=== PATIENT | male | born 1985 | race African-American/Black ===

== ENCOUNTER 2018-01-01 13:18 | Emergency (ER) | payer BC, MEDICAID, OTHER ==
--- NOTE | 2018-01-01 13:40 | ER Document Report ---
ED Medical Screen (RME) - General Chief Complaint: Flank Pain Stated Complaint: FLANK PAIN Time Seen by Provider: 01/01/18 13:27 Mode of Arrival: Ambulatory Information source: Patient Notes: This is a 32-year-old male who presents to the gradual swelling of the left testicle. He does state that he is also had some left flank pain for the past 3 weeks. He denies any fever, chills. He denies any blood in the urine or dysuria. He denies any testicular pain in general. He states he was in [place] 3 weeks ago and he thinks the testicle has been getting larger since then. I have greeted and performed a rapid initial assessment of this patient. A comprehensive ED assessment and evaluation of the patient, analysis of test results and completion of medical decision making process we will be contacted by additional ED providers. TRAVEL OUTSIDE OF THE [place] IN LAST 30 DAYS: No - Related Data Allergies/Adverse Reactions: No Known Allergies Allergy (Verified 01/01/18 13:27) Past Medical History - Social History Frequency of alcohol use: Occasional Drug Abuse: None Renal/ Medical History: Denies: Hx Peritoneal Dialysis Physical Exam - Vital signs Vitals: Temp Pulse Resp BP Pulse Ox 99.3 F 103 H 20 156/112 H 98 01/01/18 13:21 01/01/18 13:21 01/01/18 13:21 01/01/18 13:21 01/01/18 13:21 Course - Vital Signs Vital signs: Temp Pulse Resp BP Pulse Ox 99.3 F 103 H 20 156/112 H 98 01/01/18 13:21 01/01/18 13:21 01/01/18 13:21 01/01/18 13:21 01/01/18 13:21
[2018-01-01 14:07] LABS: ABSOLUTE EOSINOPHILS # (AUTO) 0.1 10^3/uL (0.0-0.6); ABSOLUTE LYMPHOCYTES (AUTO) 2.6 10^3/uL (0.5-4.7); ABSOLUTE MONOCYTES (AUTO) 0.6 10^3/uL (0.1-1.4); ABSOLUTE NEUT (AUTO) 4.7 10^3/uL (1.7-8.2); BASOPHILS % (AUTO) 0.6 % (0-2); EOSINOPHILS % (AUTO) 1.8 % (0-6); HEMATOCRIT 43.6 % (37.9-51.0); HEMOGLOBIN 14.7 g/dL (13.5-17.0); LYMPHOCYTES % (AUTO) 32.3 % (13-45); MEAN CORPUSCULAR HEMOGLOBIN 29.7 pg (27.0-33.4); MEAN CORPUSCULAR HGB CONC 33.7 g/dL (32.0-36.0); MEAN CORPUSCULAR VOLUME 88 fl (80-97); MONOCYTES % (AUTO) 7.4 % (3-13); PLATELET COUNT 189 10^3/uL (150-450); RED BLOOD COUNT 4.94 10^6/uL (4.35-5.55); RED CELL DISTRIBUTION WIDTH 13.7 % (11.5-14.0); SEGMENTED NEUTROPHILS % (AUTO) 57.9 % (42-78); TOTAL CELLS COUNTED % (AUTO) 100 %; WHITE BLOOD COUNT 8.2 10^3/uL (4.0-10.5)
[2018-01-01 14:27] LABS: ANION GAP 9 (5-19); BLOOD UREA NITROGEN 14 mg/dL (7-20); CALCIUM 9.2 mg/dL (8.4-10.2); CARBON DIOXIDE 30 mmol/L (22-30); CHLORIDE 106 mmol/L (98-107); GLUCOSE 104 mg/dL (75-110); POTASSIUM 4.2 mmol/L (3.6-5.0); SODIUM 144.9 mmol/L (137-145)
--- NOTE | 2018-01-01 14:37 | RADIOLOGY REPORT (SQ) ---
EXAM DESCRIPTION: U/S SCROTUM W/DOPPLER COMPLETED DATE/TIME: 01/01/2018 2:24 pm REASON FOR STUDY: left testicle swelling COMPARISON: None. TECHNIQUE: Static and realtime dias scale imaging of the scrotum and testes. Selected color Doppler and spectral images recorded to document blood flow. LIMITATIONS: None. FINDINGS: RIGHT: TESTICLE: Normal size. Normal echotexture. Normal blood flow. No mass. EPIDIDYMIS: Normal. HYDROCELE OR VARICOCELE: No. HERNIA OR EXTRA-TESTICULAR MASS: No. OTHER: No other significant finding. LEFT: TESTICLE: Enlarged relative to the right testis. Slightly hyperemic. Heterogeneous diffuse abnormal echo pattern with rounded areas of relative hypoechoic parenchymal and heterogeneous areas of increa sed echogenicity. In the absence of any trauma history, concerning for neoplasm. Pronounced orchiti s is also in the differential. No calcifications are detected. EPIDIDYMIS: Normal. HYDROCELE OR VARICOCELE: No. HERNIA OR EXTRA-TESTICULAR MASS: No. OTHER: No other significant finding. IMPRESSION: 1. Abnormal left testis. With no provided history of significant trauma or pain, concer ray for neoplasm. No evidence of torsion. TECHNICAL DOCUMENTATION: JOB ID: [id number] [employer]- All Rights Reserved Reading location - IP/workstation name: [email or web address]
[2018-01-01] MEDS ORDERED: AZITHROMYCIN 250 MG TABLET PO ONE (14:54)
[2018-01-01] MEDS ORDERED: LIDOCAINE 1% INJ-PF (10 MG/ML) 30 ML SDV INJ ONE (14:54)
--- NOTE | 2018-01-01 14:54 | ER Document Report ---
ED General - General Mode of Arrival: Ambulatory TRAVEL OUTSIDE OF THE [place] IN LAST 30 DAYS: No <DAVI ESPANA - Last Filed: 01/01/18 17:36> <SRINIBRUCEMARIA LUISA - Last Filed: 01/01/18 17:50> - General Chief Complaint: Flank Pain Stated Complaint: FLANK PAIN Time Seen by Provider: 01/01/18 13:27 - HPI Notes: 32-year-old male presents the ED with complaints of gradual left testicular swelling as well as left inguinal pain, with increasing pain for the last 3 weeks. Has not seen a primary care provider for this concern. Patient did just return from [place] on a vacation approximately a week ago. States he did have unprotected sexual intercourse, denies any penile drainage penile lesions. Denies any fevers or chills, denies any bladder or bowel dysfunction, denies any erectile dysfunction or ejaculation issues. Patient denies history of any STDs. Denies family history of testicular cancer. Denies chest pain, palpitations, shortness of breath, dyspnea, nausea, vomiting, diarrhea, abdominal pain, hematuria,blurred vision, double vision, loss of vision, speech changes, LH, dizziness, syncope, headaches, wheezing, ST, URI, neck pain, weakness, bowel or bladder dysfunction, saddle anesthesia, numbness or tingling in bilateral upper or lower extremities equally, muscle paralysis, weakness in bilateral upper or lower extremities equally or rash. Denies IV drug use. ( DAVI ESPANA) - Related Data Allergies/Adverse Reactions: No Known Allergies Allergy (Verified 01/01/18 13:27) Past Medical History - General Information source: Patient - Social History Smoking Status: Never Smoker Frequency of alcohol use: Occasional Drug Abuse: None Family History: Reviewed & Not Pertinent Patient has suicidal ideation: No Patient has homicidal ideation: No Renal/ Medical History: Denies: Hx Peritoneal Dialysis Past Surgical History: Reports: Hx Orthopedic Surgery - left emma <DAVI ESPANA - Last Filed: 01/01/18 17:36> Review of Systems - Review of Systems Constitutional: No symptoms reported EENT: No symptoms reported Cardiovascular: No symptoms reported Respiratory: No symptoms reported Gastrointestinal: No symptoms reported Genitourinary: No symptoms reported Male Genitourinary: See HPI Musculoskeletal: No symptoms reported Skin: No symptoms reported Hematologic/Lymphatic: No symptoms reported Neurological/Psychological: No symptoms reported <DAVI ESPANA - Last Filed: 01/01/18 17:36> Physical Exam <DAVI ESPANA - Last Filed: 01/01/18 17:36> <SRINIBRUCEMARIA LUISA - Last Filed: 01/01/18 17:50> - Vital signs Vitals: Temp Pulse Resp BP Pulse Ox 99.3 F 103 H 20 156/112 H 98 01/01/18 13:21 01/01/18 13:21 01/01/18 13:21 01/01/18 13:21 01/01/18 13:21 - Notes Notes: PHYSICAL EXAMINATION: GENERAL: Well-appearing, well-nourished and in no acute distress. HEAD: Atraumatic, normocephalic. EYES: Pupils equal round and reactive to light, extraocular movements intact, sclera anicteric, conjunctiva are normal. ENT: Nares patent, oropharynx clear without exudates. Moist mucous membranes. NECK: Normal range of motion, supple without lymphadenopathy LUNGS: Breath sounds clear to auscultation bilaterally and equal. No wheezes rales or rhonchi. HEART: Regular rate and rhythm without murmurs ABDOMEN: Soft, nontender, nondistended abdomen. No guarding, no rebound. No masses appreciated. : Noted palpable mass to posterior aspect of the left testes, no surrounding erythema, induration, warmth to touch, no inguinal or femoral hernias bilaterally, both testes descended. normal cremasteric reflex. Musculoskeletal: Normal range of motion, no pitting or edema. No cyanosis. NEUROLOGICAL: Cranial nerves grossly intact. Normal speech, normal gait. Normal sensory, motor exams PSYCH: Normal mood, normal affect. SKIN: Warm, Dry, normal turgor, no rashes or lesions noted. (DAVI ESPANA) Course - Laboratory Result Diagrams: 01/01/18 14:00 01/01/18 14:00 <DAVI ESPANA - Last Filed: 01/01/18 17:36> - Laboratory Result Diagrams: 01/01/18 14:00 01/01/18 14:00 <MARIA LUISA ROMO - Last Filed: 01/01/18 17:50> - Re-evaluation Re-evalutation: 01/01/18 15:08 Healthy 32-year-old male who is afebrile, who is likely anxious when his initial vital signs were taken, repeat vital signs were normal, who appears to be in no distress. Ultrasound shows a left testicular mass that is heterogeneous diffusely abnormal echo pattern with rounded areas of relative hypo-echoic parenchymal and heterogeneous areas of increased echogenicity read by radiologist Dr. Delbert Kirk MD. no evidence of torsion, differential also includes orchitis. The BC negative for any leukocytosis or anemia, CMP negative for anemia hepatic dysfunction Consulted with Dr. Kingston at 1425, stated needed urology consults advised to check a LDH. Spoke with Dr. Rickey Otoole, neurologist on-call at 1427, will see patient in clinic tomorrow, advised to order a liver function panel, AFP, beta quant. 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 Work note given. I have reevaluated this patient multiple times and no significant life threatening changes, no signs of toxicity, sepsis or peritonitis are noted. The patient and I have discussed the diagnosis and risks, and we agree with discharging home and close follow-up. We also discussed returning to the Emergency Department immediately if new or worsening symptoms occur with the understanding that symptoms and presentations can change. At this time will discharge with return precautions and follow-up recommendations. Verbal discharge instructions given a the bedside and opportunity for questions given. We have discussed the symptoms which are most concerning (e.g., saddle anesthesia, urinary or bowel incontinence or retention, changing or worsening pain) that necessitate immediate return. Medication warnings reviewed. All questions and concerns answered by this provider. Patient is in agreement with this plan and has verbalized understanding of return precautions and the need for primary care follow-up in the next 24-72 hours and the urologist as already expressed. Patient verbalized understanding of plan of care and agree with plan of care. (DAVI ESPANA) 01/01/18 17:49 Note: I called the patient at home and spoke to him and reiterated that he absolutely needs to call the urologist tomorrow given our concerns for testicular cancer. He understands and he will be following up with the urologist tomorrow as planned. (MARIA LUISA ROMO) - Vital Signs Vital signs: Temp Pulse Resp BP Pulse Ox 98.9 F 89 20 143/94 H 98 01/01/18 15:24 01/01/18 15:24 01/01/18 15:24 01/01/18 15:24 01/01/18 15:24 - Laboratory Laboratory results interpreted by me: 01/01/18 01/01/18 01/01/18 14:00 14:00 14:45 Lactate Dehydrogenase 2110 H Beta HCG, Quant 6.40 H Urine Ketones TRACE H Urine Urobilinogen 4.0 H Discharge <DAVI ESPANA - Last Filed: 01/01/18 17:36> <MARIA LUISA ROMO - Last Filed: 01/01/18 17:50> - Discharge Clinical Impression: Testicular mass, Possible exposure to STD Condition: Stable Disposition: HOME, SELF-CARE Instructions: Growth or Mass, Pending Workup (OM) Additional Instructions: Follwo up with Dr. Otoole, urologist will be the office tomorrow morning. Take antibiotic as directed with food. Eat yogurt daily to prevent loose stool. Avoid having sexual intercourse until results of GC, should be back later today. Return immediately for any new or worsening symptoms. Follow up with primary care provider, call tomorrow to make followup appointment. Prescriptions: Doxycycline Hyclate 100 mg PO BID #20 capsule Forms: Return to Work Referrals: RICKEY OTOOLE MD [BACK OFFICE MEDICAL ASSISTANT] - Follow up tomorrow (call in morning for an appointment ) VIVIANA RAY MD [ACTIVE STAFF] - Follow up as needed (in 3-5 days)
[2018-01-01] MEDS ORDERED: CEFTRIAXONE INJ 250 MG VIAL IM ONE (14:55)
[2018-01-01 15:10] LABS: ALANINE AMINOTRANSFERASE 27 U/L (21-72); ALBUMIN 3.9 g/dL (3.5-5.0); ALKALINE PHOSPHATASE 104 U/L (38-126); ASPARTATE AMINO TRANSFERASE 28 U/L (17-59); BILIRUBIN,DIRECT 0.2 mg/dL (0.0-0.4); BILIRUBIN,TOTAL 0.2 mg/dL (0.2-1.3); TOTAL PROTEIN 7.5 g/dL (6.3-8.2)
[2018-01-01 15:16] LABS: APPEARANCE,URINE CLEAR; BILIRUBIN,URINE NEGATIVE (NEGATIVE); COLOR,URINE YELLOW; GLUCOSE, URINE NEGATIVE (NEGATIVE); KETONES,URINE TRACE mg/dL (NEGATIVE); LEUKOCYTE ESTERASE,URINE NEGATIVE (NEGATIVE); NITRITE,URINE NEGATIVE (NEGATIVE); PROTEIN,URINE NEGATIVE (NEGATIVE); URINE SPECIFIC GRAVITY 1.035
[2018-01-01 15:27] VITALS: BP 143/94
[2018-01-01 16:32] LABS: CHLAM PCR NOT DETECTED (NOT DETECT); GON PCR NOT DETECTED (NOT DETECT)
== END 2018-01-01 15:27 | disposition home or self-care (01) ==
LOC: ER 13:18
DX: D49.59 Neoplasm of unspecified behavior of other genitourinary organ (principal); Z20.2 Contact with and (suspected) exposure to infections with a predominantly sexual mode of transmission
CPT/HCPCS: 36415; 76870; 80048; 80076; 81001; 82105; 83615; 84702; 85025; 87491; 87591; 93976; 99284

== ENCOUNTER 2018-01-04 13:07 | Day surgery (SDC) | payer BC ==
[~2018-01-04 13:07] MED LIST: CEFAZOLIN 1 GM/D5W RTU 1 GM/50 ML RTUPB IV PRN
[2018-01-04] MEDS ORDERED: MIDAZOLAM 2 MG/2 ML INJ ONE (14:42)
[2018-01-04] MEDS ORDERED: FENTANYL CITRATE INJ/PF 250 MCG/5 ML AMPULE ONE ×2 (14:42→15:53)
[2018-01-04] MEDS ORDERED: LIDOCAINE 2% INJ-PF (20 MG/ML) 10 ML AMPUL ONE (14:42)
[2018-01-04] MEDS ORDERED: PROPOFOL INJ 200 MG/20 ML VIAL IV ONE ×2 (14:43→15:54)
[2018-01-04] MEDS ORDERED: ACETAMINOPHEN 1,000 MG/100 ML RTUPB IV ONE (14:43)
[2018-01-04] MEDS ORDERED: MORPHINE SULFATE 10 MG/ML INJ ONE (15:40)
[2018-01-04] MEDS ORDERED: PROMETHAZINE HCL INJ 25 MG/1 ML VIAL IV PRN ×2 (16:06)
[2018-01-04] MEDS ORDERED: DIPHENHYDRAMINE HCL 50 MG/ML VIAL IV PRN (16:06)
[2018-01-04] MEDS ORDERED: MEPERIDINE HCL/PF INJ 25 MG/1 ML DISP.SYRIN IV PRN (16:06)
[2018-01-04] MEDS ORDERED: FENTANYL CITRATE INJ/PF 100 MCG/2 ML AMPUL IV PRN ×3 (16:06)
[2018-01-04] MEDS ORDERED: ONDANSETRON HCL INJ/PF 4 MG/2 ML SDV IV PRN (16:06)
[2018-01-04] MEDS ORDERED: MORPHINE SULFATE 10 MG/ML INJ IV PRN (16:06)
[2018-01-04] MEDS ORDERED: OXYCODONE-ACETAMINOPHEN 5-325 MG TABLET PO PRN ×2 (16:06)
[2018-01-04] MEDS ORDERED: BUPIVACAINE HCL 0.25 % INJ/PF (2.5 MG/1 ML) 30 ML VIAL ONE (16:20)
[2018-01-04] MEDS ORDERED: KETOROLAC TROMETHAMINE INJ/PF 30 MG/1 ML SDV ONE (16:54)
[2018-01-04] MEDS ORDERED: HYDROCODONE/ACETAMINOPHEN 5-325 MG TABLET PO PRN (18:00)
[2018-01-04 19:07] VITALS: BP 135/90
--- NOTE | 2018-01-04 20:04 | OPERATIVE REPORT E ---
Operative Report NAME: HIWOT FERNANDO : 1985 AGE: 32Y DATE OF SURGERY: 01/04/2018 ROOM: PREOPERATIVE DIAGNOSIS: LEFT TESTICULAR MASS. POSTOPERATIVE DIAGNOSIS: LEFT TESTICULAR MASS. OPERATION: Left radical orchiectomy. SURGEON: DANIEL PITTMAN M.D. CURRENCY EXAMINER: None. TISSUE REMOVED OR ALTERED: Left testicle. COMPLICATIONS: None. ESTIMATED BLOOD LOSS: Minimal. INDICATIONS FOR PROCEDURE: The patient is a 32-year-old -[place] male with a solid left testicular mass. His tumor markers were elevated. His alpha-fetoprotein was normal at 4.1; his beta hCG was elevated at 6.4 (normal less than 2.39); and his LDH was 2110 (normal 313-618). The various options for treatment as well as risks and benefits were discussed. Potential complications that were discussed included but were not limited to bleeding, infection, need for additional surgery, injury to surrounding structures, including the ilioinguinal or genitofemoral nerve which can cause burning or numbness in the scrotum or anterior thigh. The patient appeared to understand the various options for treatment as well as the risks and benefits and wished to proceed with the proposed surgery. PROCEDURE: After the patient was identified in the preop holding area, he was brought to the operating room. Timeout was performed where the correct patient, side of procedure, and procedure were confirmed. He was then given general anesthesia. He was next prepped and draped in the routine sterile manner. An incision was made obliquely in the left inguinal canal and dissection was carried sharply through the various layers down to the level of fascia. Layers were coagulated with Bovie and secured with 3-0 chromic ties. The external oblique fascia was opened in the direction of its fibers. Care was taken to avoid the underlying ilioinguinal nerve. The spermatic cord was surrounded and the cord was divided near the level of the internal ring. Two Addie hemostats were placed on the distal end and 1 on the proximal end. A transfixion suture of #1 Prolene was used secure the cord and the portion of the cord that contained the vas. These were double ligated and tied. Sutures were left long in case the patient requires a retroperitoneal method of dissection. The testicle was freed from its gubernacular attachments which were then tied with interrupted 3-0 chromic ties. The testicle was then delivered and sent for analysis. The area was checked for hemostasis, which was present. The external oblique fascia was closed with a running suture of 2-0 PDS. Care was taken to avoid the ilioinguinal nerve. The subcuticular space was closed with several interrupted sutures of 3-0 chromic. A 4-0 Vicryl was used to approximate the skin edges. Dermabond was used to seal the incision. All needle, sponge, and instrument counts were correct. The patient was returned to recovery room in satisfactory condition. DICTATING PHYSICIAN: DANIEL PITTMAN M.D. [id number] PHY#: [id number] ID: [id number] JOB#: [id number] ACCT: [id number] cc:DANIEL PITTMAN M.D. >
== END 2018-01-04 18:50 | disposition home or self-care (01) ==
LOC: OROUT 13:07
PROVIDERS: ATTEND Urology
DX: C62.12 Malignant neoplasm of descended left testis (principal)
CPT/HCPCS: 88342 ×2; 88341 ×2; 88309 ×2; 54520; J2250; J0690; J3010; J1885; J2270; J2704; J3490; J0131; 926

== ENCOUNTER 2018-01-09 04:23 | Emergency (ER) | payer BC ==
--- NOTE | 2018-01-09 05:20 | ER Document Report ---
ED Medical Screen (RME) - General Chief Complaint: Back Pain Stated Complaint: BACK PAIN Time Seen by Provider: 01/09/18 04:51 Mode of Arrival: Ambulatory Information source: Patient TRAVEL OUTSIDE OF THE [place] IN LAST 30 DAYS: No - Related Data Allergies/Adverse Reactions: No Known Allergies Allergy (Verified 01/09/18 04:39) Past Medical History - Past Medical History Cardiac Medical History: Denies: Hx Coronary Artery Disease, Hx Heart Attack, Hx Hypertension Pulmonary Medical History: Denies: Hx Asthma, Hx Bronchitis, Hx COPD, Hx Pneumonia Neurological Medical History: Denies: Hx Cerebrovascular Accident, Hx Seizures Renal/ Medical History: Denies: Hx Peritoneal Dialysis Musculoskeltal Medical History: Denies Hx Arthritis Past Surgical History: Reports: Hx Orthopedic Surgery - left emma - Immunizations Hx Diphtheria, Pertussis, Tetanus Vaccination: Yes History of Influenza Vaccine for 04/2017 - 09/2017 Season: No Physical Exam - Vital signs Vitals: Temp Pulse Resp BP Pulse Ox 98.6 F 86 12 145/91 H 98 01/09/18 04:25 01/09/18 04:25 01/09/18 04:25 01/09/18 04:25 01/09/18 04:25 Course - Vital Signs Vital signs: Temp Pulse Resp BP Pulse Ox 98.6 F 86 12 145/91 H 98 01/09/18 04:25 01/09/18 04:25 01/09/18 04:25 01/09/18 04:25 01/09/18 04:25
[2018-01-09] MEDS ORDERED: CYCLOBENZAPRINE HCL 10 MG TABLET PO ONE (05:49)
--- NOTE | 2018-01-09 05:49 | ER Document Report ---
ED Medical Screen (RME) - General Chief Complaint: Back Pain Stated Complaint: BACK PAIN Time Seen by Provider: 01/09/18 04:51 Mode of Arrival: Ambulatory Information source: Patient Notes: Patient is a 32-year-old male with complaints of left sided low back pain. Patient reports the pain has been ongoing for 1 week. Patient reports he has been seen here for this recently at which time he was diagnosed with a mass in his left testicle. Patient reports that he underwent a radical orchiectomy on Tuesday by Dr. Savage from urology. Patient reports that his back pain has never changed has not worsened but has not gotten better. Patient reports he is taking Percocet for his postoperative pain however he states that the Percocet does not relieve the back pain. Patient denies any trauma to this area. Patient denies any urinary symptoms or fever. I have greeted and performed a rapid initial assessment of this patient. A comprehensive ED assessment and evaluation of the patient, analysis of test results and completion of the medical decision making process will be conducted by additional ED providers. TRAVEL OUTSIDE OF THE [place] IN LAST 30 DAYS: No - Related Data Allergies/Adverse Reactions: No Known Allergies Allergy (Verified 01/09/18 04:39) Past Medical History - Past Medical History Cardiac Medical History: Denies: Hx Coronary Artery Disease, Hx Heart Attack, Hx Hypertension Pulmonary Medical History: Denies: Hx Asthma, Hx Bronchitis, Hx COPD, Hx Pneumonia Neurological Medical History: Denies: Hx Cerebrovascular Accident, Hx Seizures Renal/ Medical History: Denies: Hx Peritoneal Dialysis Musculoskeltal Medical History: Denies Hx Arthritis Past Surgical History: Reports: Hx Orthopedic Surgery - left emma - Immunizations Hx Diphtheria, Pertussis, Tetanus Vaccination: Yes History of Influenza Vaccine for 04/2017 - 09/2017 Season: No Physical Exam - Vital signs Vitals: Temp Pulse Resp BP Pulse Ox 98.6 F 86 12 145/91 H 98 01/09/18 04:25 01/09/18 04:25 01/09/18 04:25 01/09/18 04:25 01/09/18 04:25 - Notes Notes: PHYSICAL EXAMINATION: GENERAL: Well-appearing, well-nourished and in no acute distress. LUNGS: Breath sounds clear to auscultation bilaterally and equal. No wheezes rales or rhonchi. HEART: Regular rate and rhythm without murmurs ABDOMEN: Soft, nontender, nondistended abdomen. No guarding, no rebound. No masses appreciated. Musculoskeletal: Normal range of motion, no pitting or edema. No cyanosis. TTP to left lumber spine. NEUROLOGICAL: Cranial nerves grossly intact. Normal speech, normal gait. Normal sensory, motor exams Course - Vital Signs Vital signs: Temp Pulse Resp BP Pulse Ox 98.6 F 86 12 145/91 H 98 01/09/18 04:25 01/09/18 04:25 01/09/18 04:25 01/09/18 04:25 01/09/18 04:25
--- NOTE | 2018-01-09 06:02 | RADIOLOGY REPORT (SQ) ---
EXAM DESCRIPTION: CT ABDOMEN PELVIS WITHOUT IV CONTRAST COMPLETED DATE/TME: 01/09/2018 04:57 EXAM DESCRIPTION: CT ABDOMEN AND PELVIS WITHOUT CONTRAST CLINICAL HISTORY: left flank/back pain left orchiectomy 01/04/2018. COMPARISON: None Available. TECHNIQUE: CT of the abdomen and pelvis without IV contrast. Evaluation of the solid organs and vasculature is suboptimal due to lack of IV contrast. DLP: 1178.37 mGy-cm FINDINGS: Lung Bases: There is a 0.3 cm pulmonary nodule in the left lung base which is incompletely visualized on this study. Bones: No destructive bone lesions identified. Abdomen: Liver: The liver has normal size and density. Gallbladder: No calcified gallstones. Spleen, Pancreas, and Adrenal Glands: The spleen, pancreas, and adrenal glands are unremarkable. Kidneys: The kidneys have normal size and contour without evidence of hydronephrosis. No obstructing ureteral calculi. Vasculature: The aorta and IVC have normal caliber and position. Stomach: The stomach and duodenum have normal course. Other: No free intraperitoneal air. Possible enlarged left para-aortic lymph nodes, a security representative lymph node is best seen on image #[id number] measuring 4.6 x 3.3 cm. Pelvis: Bladder: Urinary bladder is unremarkable. Bowel: No dilated loops of large or small bowel. Appendix: Normal appendix. Pelvis: There is skin thickening of the scrotum and inflammatory change extending along the left inguinal canal where there is a small focus of subcutaneous air as well as inflammatory change in the anterior abdominal wall subcutaneous soft tissues. Prostate is not enlarged. IMPRESSION: 1. Inflammatory change involving the scrotum and left inguinal canal may be postoperative. Cellulitis could also contribute to produce this appearance. No well-circumscribed fluid collection identified. 2. Extensive left periaortic lymphadenopathy, the largest lymph node measuring 4.6 cm in greatest dimension. This is concerning for metastatic disease given history of recent left orchiectomy. This exam was performed according to our departmental dose-optimization program, which includes automated exposure control, adjustment of the mA and/or kV according to patient size and/or use of iterative reconstruction technique.
[2018-01-09] MEDS ORDERED: OXYCODONE-ACETAMINOPHEN 5-325 MG TABLET PO ONE (06:24)
--- NOTE | 2018-01-09 06:28 | ER Document Report ---
ED General - General Mode of Arrival: Ambulatory Information source: Patient TRAVEL OUTSIDE OF THE [place] IN LAST 30 DAYS: Yes - Vacation in [place] <ROBBIE KIM - Last Filed: 01/09/18 06:36> <DELROY MARAVILLA - Last Filed: 01/09/18 09:17> - General Chief Complaint: Back Pain Stated Complaint: BACK PAIN Time Seen by Provider: 01/09/18 04:51 Notes: Patient is a 32 year old male presenting to the emergency department complaining of left flank pain. Patient presented to this ED on 01/01/2018 complaining of flank pain and testicular swelling and was found to have a testicular mass in his left testicle. On 01/04/2018 Dr. Savage performed an outpatient radial orchiectomy. Patient today states the pain has not worsened or improved since the onset of his symptoms 2 weeks ago. Patient states he was given 10 pills of Percocet but states this is not really helping his pain. Patient denies any abdominal pain, new trauma or injury, or dysuria. (ROBBIE KIM) - Related Data Allergies/Adverse Reactions: No Known Allergies Allergy (Verified 01/09/18 04:39) Past Medical History - General Information source: Patient - Social History Smoking Status: Never Smoker Frequency of alcohol use: None Family History: Reviewed & Not Pertinent Patient has suicidal ideation: No Patient has homicidal ideation: No Past Surgical History: Reports: Hx Orthopedic Surgery - left emma - Immunizations Hx Diphtheria, Pertussis, Tetanus Vaccination: Yes <ROBBIE KIM - Last Filed: 01/09/18 06:36> Review of Systems - Review of Systems Constitutional: No symptoms reported EENT: No symptoms reported Cardiovascular: No symptoms reported Respiratory: No symptoms reported Gastrointestinal: No symptoms reported Genitourinary: See HPI, Flank pain Male Genitourinary: No symptoms reported Musculoskeletal: No symptoms reported Skin: No symptoms reported Hematologic/Lymphatic: No symptoms reported Neurological/Psychological: No symptoms reported -: Yes All other systems reviewed and negative <ROBBIE KIM - Last Filed: 01/09/18 06:36> Physical Exam - General General appearance: Appears well, Alert In distress: None - HEENT Head: Normocephalic, Atraumatic Eyes: Normal Conjunctiva: Normal Extraocular movements intact: Yes Pupils: PERRL Neck: Normal - Respiratory Respiratory status: No respiratory distress - Cardiovascular Rhythm: Regular Heart sounds: Normal auscultation Murmur: No Friction rub: No Gallop: None auscultated - Abdominal Inspection: Obese Distension: No distension Bowel sounds: Normal Tenderness: Tender - LLQ tenderness to palpation, post operative. Organomegaly: No organomegaly - Genitourinary Scrotum: Swelling - Post operative. Left radial orchiectomy performed on 2017. - Back Back: Normal. No: Nontender - no reproducible tenderness - Extremities General upper extremity: Normal ROM General lower extremity: Normal ROM - Neurological Neuro grossly intact: Yes Cognition: Normal Orientation: AAOx4 You Coma Scale Eye Opening: Spontaneous You Coma Scale Verbal: Oriented You Coma Scale Motor: Obeys Commands [place] Coma Scale Total: 15 Speech: Normal - Psychological Associated symptoms: Normal affect, Normal mood - Skin Skin Temperature: Warm Skin Moisture: Dry Skin Color: Normal <ROBBIE KIM - Last Filed: 01/09/18 06:36> - Vital signs Vitals: Temp Pulse Resp BP Pulse Ox 98.6 F 86 12 145/91 H 98 01/09/18 04:25 01/09/18 04:25 01/09/18 04:25 01/09/18 04:25 01/09/18 04:25 Course - Laboratory Result Diagrams: 01/09/18 07:15 01/09/18 07:15 - Diagnostic Test Radiology reviewed: Image reviewed, Reports reviewed - CT of the chest shows bilateral subcentimeter pulmonary nodules worrisome for metastatic disease. CT of abdomen and pelvis shows retroperitoneal adenopathy consistent with metastatic disease. <DELROY MARAVILLA - Last Filed: 01/09/18 09:17> - Vital Signs Vital signs: Temp Pulse Resp BP Pulse Ox 98.3 F 80 20 130/85 H 100 01/09/18 07:26 01/09/18 07:26 01/09/18 07:26 01/09/18 07:26 01/09/18 07:26 - Laboratory Laboratory results interpreted by me: 01/09/18 01/09/18 07:15 07:15 RBC 4.23 L Hgb 12.7 L Hct 37.3 L Direct Bilirubin 0.5 H Total Protein 8.4 H Beta HCG, Quant 4.56 H Discharge <ROBBIE KIM Last Filed: 01/09/18 06:36> <DELROY MARAVILLA - Last Filed: 01/09/18 09:17> - Discharge Clinical Impression: Metastatic disease Left low back pain Qualifiers: Chronicity: unspecified Sciatica presence: without sciatica Qualified Code(s): M54.5 - Low back pain Condition: Stable Disposition: HOME, SELF-CARE Additional Instructions: Your back pain seems to be related to 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 Dr. Sheikh with [facility] has an appointment for you tomorrow morning at 10 AM. You will be discharged with prescription for pain medication. RETURN TO THE EMERGENCY ROOM IF ANY NEW OR WORSENING SYMPTOMS. Prescriptions: Oxycodone HCl/Acetaminophen [Percocet 5-325 mg Tablet] 1 - 2 tab PO ASDIR PRN # 15 tablet PRN Reason: Referrals: ASIA SHEIKH MD [ACTIVE STAFF] - 01/10/18 10:00 am Scribe Attestation: 01/09/18 07:27 I personally performed the services described in the documentation, reviewed and edited the documentation which was dictated to the scribe in my presence, and it accurately records my words and actions. (DELROY MARAVILLA) Scribe Documentation - Scribe Written by Cale:: Cale Coppola, 01/09/2018 06:30 acting as scribe for :: Mickey <ROBBIE KIM - Last Filed: 01/09/18 06:36>
[2018-01-09 07:42] LABS: ABSOLUTE EOSINOPHILS # (AUTO) 0.2 10^3/uL (0.0-0.6); ABSOLUTE LYMPHOCYTES (AUTO) 1.5 10^3/uL (0.5-4.7); ABSOLUTE MONOCYTES (AUTO) 0.6 10^3/uL (0.1-1.4); ABSOLUTE NEUT (AUTO) 4.9 10^3/uL (1.7-8.2); BASOPHILS % (AUTO) 0.2 % (0-2); EOSINOPHILS % (AUTO) 2.5 % (0-6); HEMATOCRIT 37.3 % (37.9-51.0); HEMOGLOBIN 12.7 g/dL (13.5-17.0); LYMPHOCYTES % (AUTO) 21.5 % (13-45); MEAN CORPUSCULAR HEMOGLOBIN 30.1 pg (27.0-33.4); MEAN CORPUSCULAR HGB CONC 34.1 g/dL (32.0-36.0); MEAN CORPUSCULAR VOLUME 88 fl (80-97); MONOCYTES % (AUTO) 8.2 % (3-13); PLATELET COUNT 194 10^3/uL (150-450); RED BLOOD COUNT 4.23 10^6/uL (4.35-5.55); RED CELL DISTRIBUTION WIDTH 13.6 % (11.5-14.0); SEGMENTED NEUTROPHILS % (AUTO) 67.6 % (42-78); TOTAL CELLS COUNTED % (AUTO) 100 %; WHITE BLOOD COUNT 7.2 10^3/uL (4.0-10.5)
[2018-01-09 07:51] LABS: ALANINE AMINOTRANSFERASE 31 U/L (21-72); ALBUMIN 4.2 g/dL (3.5-5.0); ALKALINE PHOSPHATASE 98 U/L (38-126); ANION GAP 13 (5-19); ASPARTATE AMINO TRANSFERASE 29 U/L (17-59); BILIRUBIN,DIRECT 0.5 mg/dL (0.0-0.4); BILIRUBIN,TOTAL 0.9 mg/dL (0.2-1.3); BLOOD UREA NITROGEN 12 mg/dL (7-20); CALCIUM 9.6 mg/dL (8.4-10.2); CARBON DIOXIDE 27 mmol/L (22-30); CHLORIDE 101 mmol/L (98-107); GLUCOSE 91 mg/dL (75-110); POTASSIUM 4.2 mmol/L (3.6-5.0); SODIUM 141.3 mmol/L (137-145); TOTAL PROTEIN 8.4 g/dL (6.3-8.2)
--- NOTE | 2018-01-09 08:35 | RADIOLOGY REPORT (SQ) ---
EXAM DESCRIPTION: CT CHEST WITH COMPLETED DATE/TIME: 01/09/2018 7:56 am REASON FOR STUDY: Testicular cancer mets COMPARISON: None. TECHNIQUE: CT scan of the chest performed using helical scanning technique with dynamic intravenous contrast injection. Images reviewed with lung, soft tissue and bone windows. Reconstructed coronal and sagittal MPR images reviewed. All images stored on PACS. All CT scanners at this facility use dose modulation, iterative reconstruction, and/or weight based d osing when appropriate to reduce radiation dose to as low as reasonably achievable (ALARA). [facility]: Dose Right [facility]: CareDose [facility]: Dose Right [facility]: Teradose 4D [facility]: [employer] CONTRAST TYPE AND DOSE: contrast/concentration: Isovue 370.00 mg/ml; Total Contrast Delivered: 100.0 ml; Total Saline Delivered: 70.0 ml RENAL FUNCTION: None required. The patient is less than 50 years old. RADIATION DOSE: CT Rad equipment meets quality standard of care and radiation dose reduction techniq ues were employed. CTDIvol: 20.6 - 21.1 mGy. DLP: 3262 mGy-cm. . LIMITATIONS: None. FINDINGS: LUNGS AND PLEURA: Bilateral pulmonary nodules with some of the largest measuring approxim ately 5-6 mm. No acute pulmonary consolidation. No pneumothorax or pleural effusion. The central a irways are clear. HILAR AND MEDIASTINAL STRUCTURES: No identified masses or abnormal nodes. HEART AND VASCULAR STRUCTURES: No aneurysm or dissection. No central pulmonary emboli. No pericardi al effusion. HARDWARE: None in the chest. UPPER ABDOMEN: Please see CT abdomen report. THYROID AND OTHER SOFT TISSUES: No masses. No adenopathy. BONES: No significant finding. OTHER: No other significant finding. IMPRESSION: 1 Bilateral subcentimeter pulmonary nodules. In view of the patient's given history, th sam findings may be on the basis of metastatic disease. TECHNICAL DOCUMENTATION: JOB ID: [id number] Quality ID # 436: Final reports with documentation of one or more dose reduction techniques (e.g., Au tomated exposure control, adjustment of the mA and/or kV according to patient size, use of iterative reconstruction technique) 2010 [employer]- All Rights Reserved Reading location - IP/workstation name: [email or web address]
--- NOTE | 2018-01-09 08:57 | RADIOLOGY REPORT (SQ) ---
EXAM DESCRIPTION: CT ABD/PELVIS WITH IV ONLY COMPLETED DATE/TIME: 01/09/2018 7:56 am REASON FOR STUDY: Testicular cancer mets . Low back pain. Left orchidectomy 01/04/2018. COMPARISON: None. TECHNIQUE: CT scan of the abdomen and pelvis performed using helical scanning technique with dynamic intravenous contrast injection. No oral contrast. Images reviewed with lung, soft tissue, and bone windows. Reconstructed coronal and sagittal MPR images reviewed. Delayed images for evaluation of the urinary system also acquired. All images stored on PACS. All CT scanners at this facility use dose modulation, iterative reconstruction, and/or weight based d osing when appropriate to reduce radiation dose to as low as reasonably achievable (ALARA). [facility]: Dose Right [facility]: CareDose [facility]: Dose Right [facility]: Teradose 4D [facility]: [employer] CONTRAST TYPE AND DOSE: Isovue 370. 100 mL. RENAL FUNCTION: Not available. RADIATION DOSE: 3261.73 LIMITATIONS: None. FINDINGS: LOWER CHEST: Pulmonary nodule right middle lobe measuring 4.8 mm LIVER: No abnormality. SPLEEN: No abnormality. PANCREAS: No abnormality. GALLBLADDER: No abnormality. ADRENAL GLANDS: No abnormality. RIGHT KIDNEY AND URETER: No abnormality. LEFT KIDNEY AND URETER: No abnormality. AORTA AND VESSELS: No aneurysm. No dissection. Renal arteries, SMA, celiac without stenosis. RETROPERITONEUM: Prominent left infrarenal para-aortic adenopathy measuring 4.5 x 4.5 cm and small in ter aortocaval nodes. No retrocrural adenopathy. Small inguinal nodes. Small obturator and interna l iliac nodes. BOWEL AND PERITONEAL CAVITY: No abnormality. APPENDIX: Normal appendix. PELVIS: No mass. No free fluid. Normal bladder. ABDOMINAL WALL: No masses. No hernias. BONES: No blastic or lytic lesions seen. OTHER: Postsurgical change with soft tissue deformity, soft tissue air, hematoma formation left scrot um and left inguinal region. IMPRESSION: 1. Postsurgical changes left inguinal and left scrotal region from previous left laura ectomy. 2. Pulmonary nodule right middle lobe. A metastasis could not be excluded. 3. Retroperit amaya adenopathy consistent with metastatic testicular carcinoma. TECHNICAL DOCUMENTATION: JOB ID: [id number] Quality ID # 436: Final reports with documentation of one or more dose reduction techniques (e.g., Au tomated exposure control, adjustment of the mA and/or kV according to patient size, use of iterative reconstruction technique) 2010 [employer]- All Rights Reserved Reading location - IP/workstation name: [email or web address]
[2018-01-09 09:39] VITALS: BP 148/91
== END 2018-01-09 09:39 | disposition home or self-care (01) ==
LOC: ER 04:23
DX: M54.5 Low back pain (principal); C79.9 Secondary malignant neoplasm of unspecified site; R91.8 Other nonspecific abnormal finding of lung field; R10.9 Unspecified abdominal pain; R10.814 Left lower quadrant abdominal tenderness; Z90.79 Acquired absence of other genital organ(s)
CPT/HCPCS: 36415; 71260; 74176; 74177; 80053; 82105; 84702; 85025; 99284

== ENCOUNTER 2018-01-31 08:43 | Outpatient (CLI) | payer BC ==
[~2018-01-31 08:43] MED LIST changes: +BLEOMYCIN SULFATE IV PRN; -CEFAZOLIN 1 GM/D5W RTU 1 GM/50 ML RTUPB IV PRN; +CISPLATIN IV PRN; +DEXAMETHASONE SOD PHOSPHATE 10 MG in NORMAL SALINE 50 ML IV PRN; +ETOPOSIDE IV PRN; +FUROSEMIDE INJ/PF 20 MG/2 ML SDV IV PRN; +NORMAL SALINE 500 ML IV PRN; +NORMAL SALINE IV PRN
[2018-01-31 10:22] VITALS: BP 156/104
== END 2018-01-31 14:30 | disposition home or self-care (01) ==
LOC: II 08:43 → 5TH 08:46 → II 14:30
PROVIDERS: ATTEND Internal Medicine
PROC: 3E03305 Introduction of Other Antineoplastic into Peripheral Vein, Percutaneous Approach (ICD-10-PCS; principal; 2018-01-31)
PROC: 3E0333Z Introduction of Anti-inflammatory into Peripheral Vein, Percutaneous Approach (ICD-10-PCS; 2018-01-31)
PROC: 3E033GC Introduction of Other Therapeutic Substance into Peripheral Vein, Percutaneous Approach (ICD-10-PCS; 2018-01-31)
DX: Z51.11 Encounter for antineoplastic chemotherapy (principal); C62.12 Malignant neoplasm of descended left testis
CPT/HCPCS: 96413; 96415; 96367; 96375; 96360; J9060; J1940; J9181; J9040; J7030; J7040; J1100; 96417

== ENCOUNTER 2018-02-01 08:39 | Outpatient (CLI) | payer BC ==
[~2018-02-01 08:39] MED LIST changes: -BLEOMYCIN SULFATE IV PRN
[2018-02-01 08:52] VITALS: BP 154/100
== END 2018-02-01 13:35 | disposition home or self-care (01) ==
LOC: II 08:39 → 5TH 08:48 → II 13:35
PROVIDERS: ATTEND Internal Medicine
PROC: 3E03305 Introduction of Other Antineoplastic into Peripheral Vein, Percutaneous Approach (ICD-10-PCS; principal; 2018-02-01)
PROC: 3E0333Z Introduction of Anti-inflammatory into Peripheral Vein, Percutaneous Approach (ICD-10-PCS; 2018-02-01)
PROC: 3E033GC Introduction of Other Therapeutic Substance into Peripheral Vein, Percutaneous Approach (ICD-10-PCS; 2018-02-01)
DX: Z51.11 Encounter for antineoplastic chemotherapy (principal); C62.12 Malignant neoplasm of descended left testis
CPT/HCPCS: 96413; 96415; 96367; J9060; J1940; J9181; J7030; J7040; J1100; 96375; 96417

== ENCOUNTER 2018-02-02 08:44 | Outpatient (CLI) | payer BC ==
[~2018-02-02 08:44] MED LIST changes: +DEXAMETHASONE SOD PHOSPHATE 10 MG in DEXTROSE 5%-WATER 50 ML IV PRN; -DEXAMETHASONE SOD PHOSPHATE 10 MG in NORMAL SALINE 50 ML IV PRN
[2018-02-02 10:23] VITALS: BP 161/95
== END 2018-02-02 13:15 | disposition home or self-care (01) ==
LOC: II 08:44 → 5TH 08:56 → II 13:15
PROVIDERS: ATTEND Internal Medicine
PROC: 3E03305 Introduction of Other Antineoplastic into Peripheral Vein, Percutaneous Approach (ICD-10-PCS; principal; 2018-02-02)
PROC: 3E0333Z Introduction of Anti-inflammatory into Peripheral Vein, Percutaneous Approach (ICD-10-PCS; 2018-02-02)
PROC: 3E033GC Introduction of Other Therapeutic Substance into Peripheral Vein, Percutaneous Approach (ICD-10-PCS; 2018-02-02)
DX: Z51.11 Encounter for antineoplastic chemotherapy (principal); C62.12 Malignant neoplasm of descended left testis
CPT/HCPCS: 96413; 96415; 96367; 96360; J9060; J1940; J9181; J7030; J7040; J1100; 96375; 96417

== ENCOUNTER 2018-02-03 08:17 | Outpatient (CLI) | payer BC ==
[~2018-02-03 08:17] MED LIST changes: -DEXAMETHASONE SOD PHOSPHATE 10 MG in DEXTROSE 5%-WATER 50 ML IV PRN; +DEXAMETHASONE SOD PHOSPHATE 10 MG in NORMAL SALINE 50 ML IV PRN
[2018-02-03 09:22] VITALS: BP 173/99
== END 2018-02-03 12:30 | disposition home or self-care (01) ==
LOC: II 08:17 → 5TH 08:17 → II 12:30
PROVIDERS: ATTEND Internal Medicine
PROC: 3E03305 Introduction of Other Antineoplastic into Peripheral Vein, Percutaneous Approach (ICD-10-PCS; principal; 2018-02-03)
PROC: 3E033GC Introduction of Other Therapeutic Substance into Peripheral Vein, Percutaneous Approach (ICD-10-PCS; 2018-02-03)
DX: Z51.11 Encounter for antineoplastic chemotherapy (principal); C62.12 Malignant neoplasm of descended left testis
CPT/HCPCS: 96413; 96415; 96367; 96360; J9060; J1940; J9181; J7030; J7040; J1100; 96375; 96417

== ENCOUNTER 2018-02-07 07:17 | Outpatient (CLI) | payer BC ==
[2018-02-07] MEDS ORDERED: NORMAL SALINE 250 ML IV PRN (08:00)
[2018-02-07] MEDS ORDERED: BLEOMYCIN SULFATE IV PRN (08:00)
[2018-02-07] MEDS ORDERED: NORMAL SALINE IV PRN (08:00)
[2018-02-07 08:54] VITALS: BP 144/93
== END 2018-02-07 10:24 | disposition home or self-care (01) ==
LOC: II 07:17 → 5TH 07:22 → II 10:24
PROVIDERS: ATTEND Internal Medicine
DX: Z51.11 Encounter for antineoplastic chemotherapy (principal); C62.12 Malignant neoplasm of descended left testis
CPT/HCPCS: 96413; J9040

== ENCOUNTER 2018-02-14 08:03 | Outpatient (CLI) | payer BC ==
[~2018-02-14 08:03] MED LIST changes: +BLEOMYCIN SULFATE IV PRN; -CISPLATIN IV PRN; -DEXAMETHASONE SOD PHOSPHATE 10 MG in NORMAL SALINE 50 ML IV PRN; -ETOPOSIDE IV PRN; -FUROSEMIDE INJ/PF 20 MG/2 ML SDV IV PRN; +NORMAL SALINE 250 ML IV PRN; -NORMAL SALINE 500 ML IV PRN
[2018-02-14 09:42] VITALS: BP 144/85
== END 2018-02-14 12:00 | disposition home or self-care (01) ==
LOC: II 08:03 → 5TH 08:04 → II 12:00
PROVIDERS: ATTEND Internal Medicine
DX: Z51.11 Encounter for antineoplastic chemotherapy (principal); C62.12 Malignant neoplasm of descended left testis
CPT/HCPCS: 96413; J9040

== ENCOUNTER → 2018-06-19 | Outpatient (CLI) | payer BC ==
--- NOTE | 2018-06-19 08:57 | RADIOLOGY REPORT (SQ) ---
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 Images reviewed with lung, soft tissue and bone windows. Reconstructed coronal a nd sagittal MPR images reviewed. All images stored on PACS. CT scan of the abdomen and pelvis performed with intravenous and without oral contrastusing helical s alisa technique with dynamic intravenous contrast injection. Images reviewed with lung, soft tissu e and bone windows. Reconstructed coronal and sagittal MPR images reviewed. Delayed images for eval uation of the urinary system also acquired and evaluated. All images stored on PACS. All CT scanners at this facility use dose modulation, iterative reconstruction, and/or weight based d osing when appropriate to reduce radiation dose to as low as reasonably achievable (ALARA). [facility]: Dose Right [facility]: CareDose [facility]: Dose Right [facility]: Teradose 4D [facility]: [employer] RADIATION DOSE: CT Rad equipment meets quality standard of care and radiation dose reduction techniq ues were employed. CTDIvol: 26.4 - 31.1 mGy. DLP: 4664 mGy-cm. . LIMITATIONS: None. FINDINGS: CHEST: LUNGS AND PLEURA: A 4 mm smooth round noncalcified nodule is present along the subpleural space right middle lobe with the minor fissure, likely a benign noncalcified granuloma. This is unchanged from 01/09/2018 CT chest. No other worrisome pulmonary nodules. No pleural effusion. No pneumothorax. No focal infiltrates. HILAR AND MEDIASTINAL STRUCTURES: No identified masses or abnormal nodes. HEART AND VASCULAR STRUCTURES: No aneurysm or dissection. No central pulmonary emboli. No pericardi al effusion. HARDWARE: None. THYROID AND OTHER SOFT TISSUES: No masses. No adenopathy. BONES: No significant finding. OTHER: No other significant finding. ABDOMEN AND PELVIS: LIVER: Normal size. No masses. No dilated ducts. SPLEEN: Normal size. No focal lesions. PANCREAS: No masses. No significant calcifications. No adjacent inflammation or peripancreatic fluid collections. Pancreatic duct not dilated. GALLBLADDER: No identified stones by CT criteria. No inflammatory changes to suggest cholecystitis. ADRENAL GLANDS: No significant masses or asymmetry. RIGHT KIDNEY AND URETER: No solid masses. No significant calcification. No hydronephrosis or hydroure ter. LEFT KIDNEY AND URETER: No solid masses. No significant calcification. No hydronephrosis or hydrouret er. AORTA AND VESSELS: No aneurysm. No dissection. Renal arteries, SMA, celiac without stenosis. RETROPERITONEUM: No retroperitoneal adenopathy, hemorrhage or masses. BOWEL AND PERITONEAL CAVITY: No masses or inflammatory changes. No free fluid or peritoneal masses. APPENDIX: Normal. ABDOMINAL WALL: No masses. No hernias. Benign postsurgical changes along the left inguinal region PELVIS: No mass or free fluid. Normal bladder. BONES: No significant or acute findings. OTHER: No other significant finding. IMPRESSION: No CT evidence of metastatic disease to the chest abdomen or pelvis given history of lef t-sided testicular cancer TECHNICAL DOCUMENTATION: JOB ID: [id number] Quality ID # 436: Final reports with documentation of one or more dose reduction techniques (e.g., Au tomated exposure control, adjustment of the mA and/or kV according to patient size, use of iterative reconstruction technique) 2010 [employer]- All Rights Reserved Reading location - IP/workstation name: [email or web address]
== END ==
LOC: RAD 07:46
PROVIDERS: ATTEND Internal Medicine
DX: C62.12 Malignant neoplasm of descended left testis (principal); R91.1 Solitary pulmonary nodule
CPT/HCPCS: 71260; 74177

== ENCOUNTER → 2018-10-04 | Outpatient (CLI) | payer BC ==
--- NOTE | 2018-10-04 15:02 | RADIOLOGY REPORT (SQ) ---
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 TECHNIQUE: CT scan of the chest performed using helical scanning technique with dynamic intravenous contrast injection. Images reviewed with lung, soft tissue and bone windows. Reconstructed coronal and sagittal MPR and MIP images reviewed. All images stored on PACS. All CT scanners at this facility use dose modulation, iterative reconstruction, and/or weight based d osing when appropriate to reduce radiation dose to as low as reasonably achievable (ALARA). [facility]: Dose Right [facility]: CareDose [facility]: Dose Right [facility]: Teradose 4D [facility]: [employer] CONTRAST TYPE AND DOSE: 100 mL Omnipaque 350- low osmolar. RENAL FUNCTION: None required. The patient is less than 50 years old. RADIATION DOSE: . LIMITATIONS: None. FINDINGS: LUNGS AND PLEURA: Stable 4 mm nodule in the anterior right middle lobe. No new nodules or masses. No infiltrates. No pneumothorax. No effusions. HILAR AND MEDIASTINAL STRUCTURES: No identified masses or abnormal nodes. HEART AND VASCULAR STRUCTURES: No aneurysm or dissection. No central pulmonary emboli. No pericardi al effusion. HARDWARE: None in the chest. UPPER ABDOMEN: No significant findings. Limited exam. THYROID AND OTHER SOFT TISSUES: No masses. No adenopathy. BONES: There are small focal sclerotic lesions in the ribs which have developed or increased in size since the prior study. Anterior right 4th rib (image 42) and lateral right 6th rib (image 63). Late ral left 5th rib (image 51) and lateral left 8th rib (image 88). A few smaller sclerotic lesions in other ribs. OTHER: No other significant finding. IMPRESSION: 1. SMALL SCLEROTIC LESIONS IN SEVERAL RIBS WHICH HAVE DEVELOPED OR INCREASED IN SIZE, SOMEWHAT CONCER MORENO FOR BONY METASTASES. WOULD RECOMMEND BONE SCAN FOR FURTHER EVALUATION. 2. STABLE 4 MM NODULE IN THE ANTERIOR RIGHT MIDDLE LOBE, POSSIBLY A GRANULOMA. NO OTHER SIGNIFICANT FINDINGS IN THE CHEST. TECHNICAL DOCUMENTATION: JOB ID: [id number] Quality ID # 436: Final reports with documentation of one or more dose reduction techniques (e.g., Au tomated exposure control, adjustment of the mA and/or kV according to patient size, use of iterative reconstruction technique) 2010 [employer]- All Rights Reserved Reading location - IP/workstation name: [email or web address]
--- NOTE | 2018-10-04 15:10 | RADIOLOGY REPORT (SQ) ---
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 TECHNIQUE: CT scan of the abdomen and pelvis performed using helical scanning technique with dynamic intravenous contrast injection. No oral contrast. Images reviewed with lung, soft tissue, and bone windows. Reconstructed coronal and sagittal MPR images reviewed. Delayed images for evaluation of the urinary system also acquired. All images stored on PACS. All CT scanners at this facility use dose modulation, iterative reconstruction, and/or weight based d osing when appropriate to reduce radiation dose to as low as reasonably achievable (ALARA). [facility]: Dose Right [facility]: CareDose [facility]: Dose Right [facility]: Teradose 4D [facility]: [employer] CONTRAST TYPE AND DOSE: contrast/concentration: Isovue 350.00 mg/ml; Total Contrast Delivered: 100.0 ml; Total Saline Delivered: 72.0 ml RENAL FUNCTION: None required. The patient is less than 50 years old. RADIATION DOSE: CT Rad equipment meets quality standard of care and radiation dose reduction techniq ues were employed. CTDIvol: 22.6 - 30.5 mGy. DLP: 4341 mGy-cm.. LIMITATIONS: None. FINDINGS: LOWER CHEST: No significant findings. No nodules or infiltrates. LIVER: Normal size. No masses. No dilated ducts. SPLEEN: Normal size. No focal lesions. PANCREAS: No masses. No significant calcifications. No adjacent inflammation or peripancreatic fluid collections. Pancreatic duct not dilated. GALLBLADDER: No identified stones by CT criteria. No inflammatory changes to suggest cholecystitis. ADRENAL GLANDS: No significant masses or asymmetry. RIGHT KIDNEY AND URETER: No solid masses. No significant calcifications. No hydronephrosis or hyd roureter. LEFT KIDNEY AND URETER: No solid masses. No significant calcifications. No hydronephrosis or hydr oureter. AORTA AND VESSELS: No aneurysm. No dissection. Renal arteries, SMA, celiac without stenosis. RETROPERITONEUM: No retroperitoneal adenopathy, hemorrhage or masses. BOWEL AND PERITONEAL CAVITY: No masses or inflammatory changes. No free fluid or peritoneal masses. APPENDIX: Normal. PELVIS: No mass. No free fluid. Normal bladder. ABDOMINAL WALL: No masses. No hernias. BONES: No significant or acute findings. Small sclerotic lesion in the left acetabulum is unchanged and probably a cortical bone island. OTHER: No other significant finding. IMPRESSION: NO SIGNIFICANT OR ACUTE FINDING IN THE ABDOMEN OR PELVIS ON CT SCAN WITH IV CONTRAST. N O EVIDENCE OF METASTATIC DISEASE IN THE ABDOMEN OR PELVIS. TECHNICAL DOCUMENTATION: JOB ID: [id number] Quality ID # 436: Final reports with documentation of one or more dose reduction techniques (e.g., Au tomated exposure control, adjustment of the mA and/or kV according to patient size, use of iterative reconstruction technique) 2010 [employer]- All Rights Reserved Reading location - IP/workstation name: [email or web address]
== END ==
LOC: RAD 13:32
PROVIDERS: ATTEND Internal Medicine
DX: C62.12 Malignant neoplasm of descended left testis (principal)
CPT/HCPCS: 71260; 74177

== ENCOUNTER → 2018-10-16 | Outpatient (CLI) | payer BC ==
--- NOTE | 2018-10-16 14:02 | RADIOLOGY REPORT (SQ) ---
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 The route of agent administration: Intravenous. ADDITIONAL DRUGS AND DOSES: None. TECHNIQUE: Routine delayed images at 3 hours post radionuclide injection acquired of the bony skelet on including anterior and posterior whole-body projections and additional focused images as needed. LIMITATIONS: None. FINDINGS: BONES: Normal visualization without areas of photopenia or increased bony uptake of radiop harmaceutical. KIDNEYS: Symmetric excretion without obstruction. OTHER: No other significant finding. IMPRESSION: NORMAL BONE SCAN. COMMENT: Quality measure 147: Current bone scan is compared with any available plain radiographs, p rior bone scans, and CT/MRI. TECHNICAL DOCUMENTATION: JOB ID: [id number] [employer]- All Rights Reserved Reading location - IP/workstation name: [email or web address]
== END ==
LOC: RAD 07:53
PROVIDERS: ATTEND Internal Medicine
DX: C62.12 Malignant neoplasm of descended left testis (principal)
CPT/HCPCS: 78306; A9561

== ENCOUNTER → 2019-02-15 | Outpatient (CLI) | payer BC ==
--- NOTE | 2019-02-15 10:17 | RADIOLOGY REPORT (SQ) ---
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 TECHNIQUE: CT scan of the chest performed using helical scanning technique with dynamic intravenous contrast injection. Images reviewed with lung, soft tissue and bone windows. Reconstructed coronal and sagittal MPR and MIP images reviewed. All images stored on PACS. All CT scanners at this facility use dose modulation, iterative reconstruction, and/or weight based d osing when appropriate to reduce radiation dose to as low as reasonably achievable (ALARA). [facility]: Dose Right [facility]: CareDose [facility]: Dose Right [facility]: Teradose 4D [facility]: [employer] CONTRAST TYPE AND DOSE: 100 mL Omnipaque 350- low osmolar. RENAL FUNCTION: None required. The patient is less than 50 years old. RADIATION DOSE: CT Rad equipment meets quality standard of care and radiation dose reduction techniq ues were employed. CTDIvol: 21.5 - 30.8 mGy. DLP: 4802 mGy-cm. . LIMITATIONS: None. FINDINGS: LUNGS AND PLEURA: Stable 4 mm nodule in the anterior right middle lobe. No new nodules or masses. No focal infiltrates. No pneumothorax. No effusions. HILAR AND MEDIASTINAL STRUCTURES: No identified masses or abnormal nodes. HEART AND VASCULAR STRUCTURES: No aneurysm or dissection. No central pulmonary emboli. No pericardi al effusion. HARDWARE: None in the chest. UPPER ABDOMEN: No significant findings. Limited exam. THYROID AND OTHER SOFT TISSUES: No masses. No adenopathy. BONES: Stable scattered sclerotic lesions in the ribs. OTHER: No other significant finding. IMPRESSION: STABLE CT OF THE CHEST WITH IV CONTRAST. STABLE 4 MM NODULE IN THE ANTERIOR RIGHT MIDDL E LOBE AND SCATTERED SCLEROTIC LESIONS IN THE RIBS. NO PROGRESSION OR NEW FINDINGS. TECHNICAL DOCUMENTATION: JOB ID: [id number] Quality ID # 436: Final reports with documentation of one or more dose reduction techniques (e.g., Au tomated exposure control, adjustment of the mA and/or kV according to patient size, use of iterative reconstruction technique) 2010 [employer]- All Rights Reserved Reading location - IP/workstation name: [email or web address]
--- NOTE | 2019-02-15 10:20 | RADIOLOGY REPORT (SQ) ---
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 TECHNIQUE: CT scan of the abdomen and pelvis performed using helical scanning technique with dynamic intravenous contrast injection. No oral contrast. Images reviewed with lung, soft tissue, and bone windows. Reconstructed coronal and sagittal MPR images reviewed. Delayed images for evaluation of the urinary system also acquired. All images stored on PACS. All CT scanners at this facility use dose modulation, iterative reconstruction, and/or weight based d osing when appropriate to reduce radiation dose to as low as reasonably achievable (ALARA). [facility]: Dose Right [facility]: CareDose [facility]: Dose Right [facility]: Teradose 4D [facility]: retickr CONTRAST TYPE AND DOSE: contrast/concentration: Isovue 350.00 mg/ml; Total Contrast Delivered: 100.0 ml; Total Saline Delivered: 70.0 ml RENAL FUNCTION: None required. The patient is less than 50 years old. RADIATION DOSE: . LIMITATIONS: None. FINDINGS: LOWER CHEST: No significant findings. No nodules or infiltrates. LIVER: Normal size. No masses. No dilated ducts. SPLEEN: Normal size. No focal lesions. PANCREAS: No masses. No significant calcifications. No adjacent inflammation or peripancreatic fluid collections. Pancreatic duct not dilated. GALLBLADDER: No identified stones by CT criteria. No inflammatory changes to suggest cholecystitis. ADRENAL GLANDS: No significant masses or asymmetry. RIGHT KIDNEY AND URETER: No solid masses. No significant calcifications. No hydronephrosis or hyd roureter. LEFT KIDNEY AND URETER: No solid masses. No significant calcifications. No hydronephrosis or hydr oureter. AORTA AND VESSELS: No aneurysm. No dissection. Renal arteries, SMA, celiac without stenosis. RETROPERITONEUM: No retroperitoneal adenopathy, hemorrhage or masses. BOWEL AND PERITONEAL CAVITY: No masses or inflammatory changes. No free fluid or peritoneal masses. APPENDIX: Normal. PELVIS: No mass. No free fluid. Normal bladder. ABDOMINAL WALL: No masses. No hernias. BONES: No significant or acute findings. OTHER: No other significant finding. IMPRESSION: NO SIGNIFICANT OR ACUTE FINDING IN THE ABDOMEN OR PELVIS ON CT SCAN WITH IV CONTRAST. TECHNICAL DOCUMENTATION: JOB ID: [id number] Quality ID # [id number]: Final reports with documentation of one or more dose reduction techniques (e.g., Au tomated exposure control, adjustment of the mA and/or kV according to patient size, use of iterative reconstruction technique) 2010 [employer]- All Rights Reserved Reading location - IP/workstation name: [email or web address]
== END ==
LOC: RAD 08:57
PROVIDERS: ATTEND Physician Assistant Medical
DX: C62.12 Malignant neoplasm of descended left testis (principal)
CPT/HCPCS: 71260; 74177

== ENCOUNTER → 2019-07-05 | Outpatient (CLI) | payer BC ==
--- NOTE | 2019-07-05 10:16 | RADIOLOGY REPORT (SQ) ---
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 TECHNIQUE: CT scan of the abdomen and pelvis performed using helical scanning technique with dynamic intravenous contrast injection. No oral contrast. Images reviewed with lung, soft tissue, and bone windows. Reconstructed coronal and sagittal MPR images reviewed. Delayed images for evaluation of the urinary system also acquired. All images stored on PACS. All CT scanners at this facility use dose modulation, iterative reconstruction, and/or weight based d osing when appropriate to reduce radiation dose to as low as reasonably achievable (ALARA). [facility]: Dose Right [facility]: CareDose [facility]: Dose Right [facility]: Teradose 4D [facility]: WeTag CONTRAST TYPE AND DOSE: contrast/concentration: Isovue 350.00 mg/ml; Total Contrast Delivered: 100.0 ml; Total Saline Delivered: 72.0 ml RENAL FUNCTION: None required. The patient is less than 50 years old. RADIATION DOSE: CT Rad equipment meets quality standard of care and radiation dose reduction techniq ues were employed. CTDIvol: 30.3 - 30.6 mGy. DLP: 3328 mGy-cm.. LIMITATIONS: None. FINDINGS: LOWER CHEST: Stable 5 mm nodule in the right middle lobe. LIVER: Normal size. No masses. No dilated ducts. SPLEEN: Normal size. No focal lesions. PANCREAS: No masses. No significant calcifications. No adjacent inflammation or peripancreatic fluid collections. Pancreatic duct not dilated. GALLBLADDER: No identified stones by CT criteria. No inflammatory changes to suggest cholecystitis. ADRENAL GLANDS: No significant masses or asymmetry. RIGHT KIDNEY AND URETER: No solid masses. No significant calcifications. No hydronephrosis or hyd roureter. LEFT KIDNEY AND URETER: No solid masses. No significant calcifications. No hydronephrosis or hydr oureter. AORTA AND VESSELS: No aneurysm. No dissection. Renal arteries, SMA, celiac without stenosis. RETROPERITONEUM: No retroperitoneal adenopathy, hemorrhage or masses. BOWEL AND PERITONEAL CAVITY: No masses or inflammatory changes. No free fluid or peritoneal masses. APPENDIX: Normal. PELVIS: No mass. No free fluid. Normal bladder. ABDOMINAL WALL: No masses. No hernias. BONES: No significant or acute findings. OTHER: No other significant finding. IMPRESSION: STABLE 5 MM NODULE IN THE RIGHT MIDDLE LOBE. NO SIGNIFICANT OR ACUTE FINDING IN THE ABD OMEN OR PELVIS ON CT SCAN WITH IV CONTRAST. NO ADENOPATHY OR OTHER EVIDENCE OF METASTASES IN THE ABD OMEN OR PELVIS. TECHNICAL DOCUMENTATION: JOB ID: [id number] Quality ID # [id number]: Final reports with documentation of one or more dose reduction techniques (e.g., Au tomated exposure control, adjustment of the mA and/or kV according to patient size, use of iterative reconstruction technique) 2010 [employer]- All Rights Reserved Reading location - IP/workstation name: [email or web address]
== END ==
LOC: RAD 08:15
PROVIDERS: ATTEND Physician Assistant Medical
DX: C62.12 Malignant neoplasm of descended left testis (principal)
CPT/HCPCS: 74177